=== PATIENT | female | born 1960 | race Caucasian/White ===

== ENCOUNTER 2018-07-24 19:00 | Outpatient (CLI) | payer OTHER | END 2018-07-24 23:59 | disposition home or self-care (01) | LOC: D.MAMMO 19:00 | DX: Z12.31 Encounter for screening mammogram for malignant neoplasm of breast (principal) ==

== ENCOUNTER 2018-08-07 08:00 | Outpatient (CLI) | payer OTHER | END 2018-08-07 09:00 | disposition home or self-care (01) | LOC: D.MAMMO 08:00 | DX: R92.8 Other abnormal and inconclusive findings on diagnostic imaging of breast (principal) ==

== ENCOUNTER → 2019-02-05 12:03 | Outpatient (CLI) | payer BC | END | disposition home or self-care (01) | LOC: D.NM 12:03 | PROVIDERS: ATTEND Family Medicine | DX: M99.9 Biomechanical lesion, unspecified (principal) ==